=== PATIENT | female | born 2000 | race Caucasian/White ===

== ENCOUNTER 2024-06-02 20:15 | Emergency (ER) | payer OTHER, SELFPAY ==
[2024-06-02 20:15] VITALS: BP 132/76
--- NOTE | 2024-06-02 20:41 | ED.GENMED ---
History of Present Illness
General
Chief Complaint: Breathing Problem
Source: patient
Exam Limitations: none
Time Seen by Provider: 06/02/24 20:40
Nursing documentation reviewed up to this point in time: agreed with
History of Present Illness
History of Present Illness:
23-year-old female presents to the emergency department complaining of upper abdominal pain and lower chest pain that began at 545, and last 3 hours. She denies any pain at this time. She has had this, pain in the past, for 2 years. She saw
cardiology, and echocardiogram that was normal. No aggravating/relieving factors.
Past History
Past History
ED Past Medical History: None
ED Past Surgical History: Other ([place] teeth removal)
Social History
Tobacco: Non-smoker
Alcohol: Occasional
Drug: None
Living: with family
Review of Systems
Review of Systems
Allergies reviewed?: Yes
All Other Systems: Not applicable
Constitutional: Reports no symptoms
EENT: Reports no symptoms
Respiratory: Reports no symptoms
Cardiac: Reports chest pain
ABD/GI: Reports abdominal pain
: Reports no symptoms
Musculoskeletal: Reports no symptoms
Skin: Reports no symptoms
Neurological: Reports no symptoms
Endocrine: Reports no symptoms
Hematologic/Lymphatic: Reports no symptoms
Psychiatric: Reports no symptoms
Phy Exam
Physical Exam
Physical Exam:
Physical Exam
General: no apparent distress, not acutely ill
Neck: supple. no meningeal signs. normal posterior pharynx
Heart: s1/s2 regular rate and rhythm, no murmur. equal radial
pulses. Mild chest wall tenderness palpation sternal costal border
HEENT: Pupils equal round reactive to light, EOMI
Lungs: no acute respiratory distress. clear bilaterally
Abdomen: normal bowel sounds. not tender. no CVAT
Neuro: alert and oriented. no focal neurological deficits cranial nerves II through XII intact
Skin: no rash
Psychiatric: well kept. interactive and cooperative
Extremities: no edema. no calf tenderness. negative homans. good distal pulses
Scores
Heart Score for Chest Pain Patients
STEMI patient?: No
History: Slightly or Non-Suspicious
ECG: Normal
Age: </= 45 years
Risk Factors: No Risk Factors
Troponin: </= Normal Limit
Heart Score for Chest Pain Patients: 0
Heart Score Risk: 2.5% MACE over next 6 weeks
Course
Orders/Labs/Results
Orders:
Orders
06/02/24 20:20
Electrocardiogram (*1) Urgent
Reason for Study: Shortness of Breath
EKG- Treatment ONCE
06/02/24 20:58
IV Insert/Care/Rem.- Treatment PRN
Test Result ONCE
06/02/24 21:02
Complete Blood Count/With Diff Urgent
Comprehensive Metabolic Panel Urgent
D-Dimer Urgent
HCG, Serum Qualitative Screen Urgent
Lipase Urgent
Troponin I Urgent
06/02/24 22:26
CR Chest - 2 Views Urgent
Comment:
Reason For Exam: chest pain
Abnormal Lab Results
06/02/24
21:02
Absolute Monos (auto) 0.8 H 10^3/uL
(0.1-0.6)
Glucose 104 H mg/dl
(70-99)
06/02/24 21:02
06/02/24 21:02
Vital Signs
Initial and Last Documented VS:
Initial Vital Signs
Temp Pulse Resp BP Pulse Ox
97.8 F 68 24 132/76 100
06/02/24 20:15 06/02/24 20:15 06/02/24 20:15 06/02/24 20:15 06/02/24 20:15
Last Documented Vital Signs
Temp Pulse Resp BP Pulse Ox
97.8 F 82 17 119/78 100
06/02/24 20:15 06/02/24 20:47 06/02/24 20:47 06/02/24 20:47 06/02/24 20:50
MDM/Problems Addressed
Differential Diagnosis Includes:
Pancreatitis, gallbladder wall, ACS
MDM/Problems Addressed:
23-year-old female with epigastric/chest pain. Normal troponin, D-dimer, lipase and chest x-ray. Patient pain-free. Stable for discharge and primary care follow-up.
*Radiology
Radiology exam reviewed: preliminary read by ED provider (Chest x-ray no acute findings)
*Pulse Oximetry
Patient hypoxic: no
*EKG
Interpreted by ED Provider?: Yes
EKG Intrepretation Date: 06/02/24
EKG Intrepretation Time: 20:25
Interpretation: normal
Comparison EKG: no comparison EKG present
Heart Rate: 70
Rate: normal
Rhythm: sinus
[place]: normal axis
Interval: normal interval
QRS Pattern: normal QRS
Ischemia: no ischemia
*Pet Sitter Interpretation
Rate: normal
Interpretation: normal
Heart Rate: 65
Rhythm: sinus
*Critical Care Note
Total Time (30-74mins, 75-104mins- exclusive of procedures): Not Applicable
Data Reviewed
Review of Other/Old Records Reveals: Testing (Normal echocardiogram, with trace tricuspid regurgitation 03/01/2022)
Patient Management
Social determinants of health affecting care: Living situation
Escalation/DeEscalation of care consider admission/obs:
Admit not indicated
ED Attending Note
-
Portions of this chart may have been created with voice recognition software.� Occasional wrong word or��sound alike� substitutions may have occurred due to the inherent limitations of voice recognition software.
Discharge Plan
Departure
Patient Disposition: Home (Routine Discharge)
Date of Disposition: 06/02/24
Time of Disposition: 23:27
Patient with high blood pressure during this ER visit?: No
Condition: Good
Discharge Problem:
Non-cardiac chest pain
Instructions: Chest Pain (DC)
Referrals:
Ida Terrell PA-C [Family Provider] - Call in 1-3 days for appt
Interventions
Interventions:
*Risk Screen - Suicide Last Done: 06/02/24 20:15
*General Assessment Last Done: 06/02/24 20:50
*Neglect/Abuse Screening Last Done: 06/02/24 20:15
ED- Fall Risk Assessment Last Done: 06/02/24 20:50
*ED COVID-19 Vaccine History Last Done: 06/02/24 20:50
ED- Cardiac Assessment Last Done: 06/02/24 20:50
ED- Pulmonary Assessment Last Done: 06/02/24 20:50
Discharge Date and Time
Print Language: ROMANIAN
[2024-06-02 20:47] VITALS: BP 119/78
--- NOTE | 2024-06-02 20:55 | EDRN ---
usually lasts 2 hours. Pt states that this started at 1745. Pt has had sharp stabbing pain with some SOB. Pt states that her heart rate dose not change and stay between 70-80. Pt does not feel palpations. Pt has been treated for reflux. Pt has seen
a beater engineer helper in the past and had echo and ekg that were normal per pt.
[2024-06-02 21:00] VITALS: BP 106/74
[2024-06-02 21:29] LABS: % Basophils 0.7 % (0-2); % Eosinophils 1.7 % (0-6); % Immature Granulocytes 0.3 % (0-0.5); % Lymphocytes 22.9 % (20.5-51.1); % Monocytes 8.4 % (1.7-9.3); Absolute Basophils 0.1 10^3/uL (0-0.2); Absolute Eosinophils 0.2 10^3/uL (0-0.7); Absolute Lymphocytes 2.1 10^3/uL (1.2-3.4); Absolute Monocytes 0.8 10^3/uL (0.1-0.6); Absolute Neutrophils 6.1 10^3/uL (1.4-6.5); Hematocrit 37.2 % (37.0-47.0); Mean Corp Hgb Conc. 34.9 g/dL (33.0-37.0); Mean Corpuscular Hgb 29.7 pg (27.0-31.0); Mean Corpuscular Volume 85.1 fL (81.0-99.0); Mean Platelet Volume 9.4 fL (7.4-10.4); Nucleated Red Blood Cells % 0 %; Platelet Count 256 10^3/uL (130-400); Red Blood Cell Count 4.37 10^6/uL (4.20-5.40); Red Cell Dist. Width 12.4 % (11.5-14.5); White Blood Cell Count 9.2 10^3/uL (4.8-10.8)
[2024-06-02 21:42] LABS: D-Dimer 0.42 ug/mlFEU (0.00-0.50)
[2024-06-02 21:46] LABS: ALT (SGPT) 15 U/L (0-35); AST (SGOT) 25 U/L (14-36); Albumin 4.4 g/dl (3.5-5.0); Alkaline Phosphatase 55 U/L (38-126); Blood Urea Nitrogen 10 mg/dl (7-17); Calcium 10.1 mg/dl (8.4-10.2); Carbon Dioxide 24 mmol/L (22-30); Chloride 105 mmol/L (98-107); Glucose 104 mg/dl (70-99); Lipase 68 U/L (23-300); Potassium 3.7 mmol/L (3.5-5.1); Sodium 138 mmol/L (135-145); Total Bilirubin 0.5 mg/dl (0.2-1.3); Total Protein 6.8 g/dl (6.3-8.2); eGFR > 60.00
[2024-06-02 21:55] LABS: Troponin I < 0.012 ng/ml
[2024-06-02 21:56] LABS: HCG, Serum Qualitative Screen Negative
[2024-06-02 22:00] VITALS: BP 125/72
[2024-06-02 23:00] VITALS: BP 128/70
[2024-06-02 23:45] VITALS: BP 113/80
== END 2024-06-02 23:45 | disposition home or self-care (01) ==
LOC: EMR 20:15
PROVIDERS: EMERGENCY PHYSICIAN Emergency Medicine; FAMILY PHYSICIAN Physician Assistant Medical
DX: R07.89 Other chest pain (principal)
CPT/HCPCS: 99283; 71046; 80053; 83690; 84484; 84703; 85025; 85379; 93005

== ENCOUNTER 2025-01-21 06:17 | Day surgery (SDC) | payer OTHER, SELFPAY | END 2025-01-21 11:23 | disposition home or self-care (01) | LOC: GI 06:17 | PROVIDERS: ATTENDING PHYSICIAN Internal Medicine; FAMILY PHYSICIAN Physician Assistant Medical | DX: R12 Heartburn (principal); K31.89 Other diseases of stomach and duodenum | CPT/HCPCS: 43239; 88305; 88342 ==